=== PATIENT | female | born 1970 | race African-American/Black ===

== ENCOUNTER 2017-12-29 13:55 | Emergency (ER) | payer MEDICAID ==
[~2017-12-29] VITALS: Ht 167.6 cm; Wt 113.4 kg
[2017-12-29 14:17] VITALS: BP 106/63
== END 2017-12-29 15:01 | disposition home or self-care (01) ==
LOC: EDBD 13:55 → ER 13:55
DX: N83.209 Unspecified ovarian cyst, unspecified side (principal); Z88.0 Allergy status to penicillin; Z88.8 Allergy status to other drugs, medicaments and biological substances